=== PATIENT | male | born 1945 | race American Indian/Alaskan Native ===

== ENCOUNTER 2019-03-31 12:30 | Emergency (ER) | payer OTHER ==
[2019-03-31 12:06] VITALS: BP 105/79; PULSE 78
[2019-03-31] MEDS ORDERED: Sodium Chloride 0.9% 1,000 ML IV ONE (13:18)
--- NOTE | 2019-03-31 13:21 | EDM.PDOC ---
<CindyagnesRuddy francis - Last Filed: 03/31/19 13:16> ED HPI GENERAL MEDICAL PROBLEM - General Chief Complaint: Lower Extremity Injury/Pain Stated Complaint: RT LOWER LEG CELLULITIS Time Seen by Provider: 03/31/19 13:16 Source of Information: Reports: Patient, RN, RN Notes Reviewed History Limitations: Reports: Other (patient is a poor historian, hard of hearing) - History of Present Illness INITIAL COMMENTS - FREE TEXT/NARRATIVE: Patient presents to ER from [place] with EMS. States RLE pain/cellulitis 8/ 10 pain. Fluid filled blisters to RIGHT lateral aspect of RIGHT foot and ankle. Ankle and foot red with edema extending to RIGHT medial lower leg. The pain radiates up his right leg to the thigh. Onset: Gradual Onset Date: 03/28/19 Duration: Constant Location: Reports: Lower Extremity, Right Quality: Reports: Ache, Burning Severity: Moderate Improves with: Reports: None Worsens with: Reports: None Associated Symptoms: Reports: No Other Symptoms Left Lower Foot Pain Score (Numeric/FACES): 8 - Related Data Allergies Allergy/AdvReac Type Severity Reaction Status Date / Time No Known Allergies Allergy Verified 03/31/19 12:07 Home Meds: Home Meds Aspirin [Ecotrin] 81 mg PO DAILY 01/12/13 [History] Calcium Acetate [PhosLo] 667 mg PO BID 01/12/13 [History] Gemfibrozil 600 mg PO DAILY 01/12/13 [History] Hydrocodone/Acetaminophen [Hydrocodon-Acetaminophen 5-300] 1 tab PO Q12HR PRN [History] Insulin Aspart [Novolog Flexpen] 3 units SUBCUT TID 01/12/13 [History] Insulin Detemir [Levemir Flexpen] 18 units SUBCUT BEDTIME 01/12/13 [History] Metoprolol Succinate [Toprol XL] 25 mg PO DAILY 01/12/13 [History] Simvastatin [Zocor] 10 mg PO BEDTIME 01/12/13 [History] Vitamin B Complex DAILY 01/12/13 [History] Acetaminophen [Tylenol] 650 mg PO Q4H PRN 02/18/13 [History] Darbepoetin Jeremy [Aranesp] 100 mcg .XX 02/18/13 [History] Pantoprazole [Protonix] 40 mg PO DAILY 02/18/13 [History] Warfarin [Coumadin] 3 mg PO DAILY 02/18/13 [History] paricalcitoL [Zemplar] 2 mcg IV 02/18/13 [History] Past Medical History HEENT History: Reports: Impaired Vision Cardiovascular History: Reports: None Respiratory History: Reports: None Gastrointestinal History: Reports: Cholelithiasis Genitourinary History: Reports: None Musculoskeletal History: Reports: None Psychiatric History: Reports: None Endocrine/Metabolic History: Reports: Diabetes, Type II, Other (See Below) Other Endocrine/Metabolic History: Hemodialysis Hematologic History: Reports: None Immunologic History: Reports: None Oncologic (Cancer) History: Reports: None Dermatologic History: Reports: None - Infectious Disease History Infectious Disease History: Reports: Chicken Pox - Past Surgical History Head Surgeries/Procedures: Reports: None HEENT Surgical History: Reports: None Cardiovascular Surgical History: Reports: None Respiratory Surgical History: Reports: None GI Surgical History: Reports: Cholecystectomy Male Surgical History: Reports: None Endocrine Surgical History: Reports: Other (See Below) Other Endocrine Surgeries/Procedures: RUE dialysis fistula Social & Family History - Family History Family Medical History: Noncontributory - Tobacco Use Smoking Status *Q: Former Smoker Years of Tobacco use: 5 Packs/Tins Daily: 1 Used Tobacco, but Quit: No Second Hand Smoke Exposure: No - Caffeine Use Caffeine Use: Reports: Coffee - Recreational Drug Use Recreational Drug Use: No Review of Systems - Review of Systems Review Of Systems: Comprehensive ROS is negative, except as noted in HPI. ED EXAM, GENERAL - Physical Exam Exam: See Below Exam Limited By: No Limitations General Appearance: Alert, WD/WN, Moderate Distress Head: Atraumatic, Normocephalic Neck: Normal Inspection, Supple, Non-Tender, Full Range of Motion Respiratory/Chest: No Respiratory Distress, Lungs Clear, Normal Breath Sounds, No Accessory Muscle Use, Chest Non-Tender Cardiovascular: Normal Peripheral Pulses, Regular Rate, Rhythm, No Edema, No Gallop, No JVD, No Murmur, No Rub GI/Abdominal: Normal Bowel Sounds, Soft, Non-Tender, No Organomegaly, No Distention, No Abnormal Bruit, No Mass Extremities: Pedal Edema (right ankle), Joint Swelling (right ankle), Increased Warmth, Redness Neurological: Alert, Oriented, CN II-XII Intact, Normal Cognition, Normal Gait, Normal Reflexes, No Motor/Sensory Deficits Skin Exam: Warm, Dry, Erythema, Increased Warmth, Other (moderate swelling and erythema of the right foot and ankle extending up the right lower leg) Course - Vital Signs Last Recorded V/S: Last Vital Signs Temp 36.6 C 03/31/19 12:00 Pulse 78 03/31/19 12:00 Resp 20 03/31/19 12:00 BP 105/79 03/31/19 12:00 Pulse Ox 97 03/31/19 12:00 - Orders/Labs/Meds Orders: Active Orders 24 hr Category Date Time Status EKG Documentation Completion [RC] URGENT Care 03/31/19 13:41 Ordered CULTURE BLOOD [BC] Stat Lab 03/31/19 12:30 Ordered CULTURE BLOOD [BC] Stat Lab 03/31/19 13:20 Ordered Morphine Med 03/31/19 14:30 Once 2 mg IVPUSH ONETIME ONE Vancomycin 1,500 mg Med 03/31/19 13:50 Ordered Sodium Chloride 0.9% [Normal Saline] 500 ml IV ONETIME Medication Orders Vancomycin HCl 1,500 mg/ (Sodium Chloride) 500 mls @ 333.333 mls/hr IV ONETIME ONE Stop: 03/31/19 15:19 Labs: Laboratory Tests 03/31/19 03/31/19 03/31/19 Range/Units 12:44 12:44 12:44 WBC 25.3 H* (5.0-10.0) 10^3/uL RBC 4.04 L (4.6-6.2) 10^6/uL Hgb 13.4 L D (14.0-18.0) g/dL Hct 39.9 L (40.0-54.0) % MCV 98.8 D (80-100) fL MCH 33.2 (27.0-34.0) pg MCHC 33.6 (33.0-35.0) g/dL Plt Count 168 (150-450) 10^3/uL Neut % (Auto) 93.6 H (42.2-75.2) % Lymph % (Auto) 1.3 L (20.5-50.1) % Hernando % (Auto) 5.0 (2-8) % Eos % (Auto) 0.1 L (1.0-3.0) % Baso % (Auto) 0.0 (0.0-1.0) % Add Manual Diff Yes Neutrophils % (Manual) 83 H (42-75) % Band Neutrophils % 13 % Lymphocytes % (Manual) 1 L (20-50) % Monocytes % (Manual) 3 (2-8) % PT 11.6 D (9.0-12.0) SEC INR 1.1 (0.9-1.2) D-Dimer, Quantitative 3800 H (0-400) ng/mL Sodium (135-145) mmol/L Potassium (3.6-5.0) mmol/L Chloride (101-111) mmol/L Carbon Dioxide (21.0-31.0) mmol/L Anion Gap BUN (7-18) mg/dL Creatinine (0.6-1.3) mg/dL Est Cr Clr Drug Dosing mL/min Estimated GFR (MDRD) BUN/Creatinine Ratio Glucose (74-105) mg/dL Lactic Acid 2.8 H* (0.5-2.0) mmol/L Calcium (8.4-10.2) mg/dl Total Bilirubin (0.2-1.0) mg/dL AST (10-42) IU/L ALT (10-60) IU/L Alkaline Phosphatase (42-121) IU/L Total Protein (6.7-8.2) g/dl Albumin (3.2-5.5) g/dl Globulin Albumin/Globulin Ratio 03/31/19 Range/Units 12:44 WBC (5.0-10.0) 10^3/uL RBC (4.6-6.2) 10^6/uL Hgb (14.0-18.0) g/dL Hct (40.0-54.0) % MCV (80-100) fL MCH (27.0-34.0) pg MCHC (33.0-35.0) g/dL Plt Count (150-450) 10^3/uL Neut % (Auto) (42.2-75.2) % Lymph % (Auto) (20.5-50.1) % Hernando % (Auto) (2-8) % Eos % (Auto) (1.0-3.0) % Baso % (Auto) (0.0-1.0) % Add Manual Diff Neutrophils % (Manual) (42-75) % Band Neutrophils % % Lymphocytes % (Manual) (20-50) % Monocytes % (Manual) (2-8) % PT (9.0-12.0) SEC INR (0.9-1.2) D-Dimer, Quantitative (0-400) ng/mL Sodium 124 L D (135-145) mmol/L Potassium 6.3 H (3.6-5.0) mmol/L Chloride 86 L (101-111) mmol/L Carbon Dioxide 18.0 L (21.0-31.0) mmol/L Anion Gap 26.3 BUN 82 H (7-18) mg/dL Creatinine 11.2 H D (0.6-1.3) mg/dL Est Cr Clr Drug Dosing 6.35 mL/min Estimated GFR (MDRD) 4 BUN/Creatinine Ratio 7.32 Glucose 250 H (74-105) mg/dL Lactic Acid (0.5-2.0) mmol/L Calcium 9.4 (8.4-10.2) mg/dl Total Bilirubin 1.2 H (0.2-1.0) mg/dL AST 65 H (10-42) IU/L ALT 41 (10-60) IU/L Alkaline Phosphatase 88 (42-121) IU/L Total Protein 8.2 (6.7-8.2) g/dl Albumin 3.5 (3.2-5.5) g/dl Globulin 4.7 Albumin/Globulin Ratio 0.74 Meds: Medications Generic Name Dose Route Start Last Admin Trade Name Freq PRN Reason Stop Dose Admin Vancomycin HCl 1,500 mg/ 500 mls @ 333.333 mls/hr 03/31/19 13:50 Sodium Chloride IV 03/31/19 15:19 ONETIME ONE Discontinued Medications Generic Name Dose Route Start Last Admin Trade Name Freq PRN Reason Stop Dose Admin Sodium Chloride 1,000 mls @ 999 mls/hr 03/31/19 13:18 03/31/19 13:21 Normal Saline IV 03/31/19 14:18 999 mls/hr .BOLUS ONE Administration Piperacillin Sod/Tazobactam 100 mls @ 200 mls/hr 03/31/19 13:51 03/31/19 14: 20 Sod 3.375 gm/ Sodium Chloride IV 03/31/19 14:20 200 mls/hr ONETIME ONE Administration Departure - Departure Disposition: DC/[facility]fer to [facility] 02 Clinical Impression: CKD (chronic kidney disease) requiring chronic dialysis Sepsis Qualifiers: Sepsis type: sepsis due to unspecified organism Sepsis acute organ dysfunction status: unspecified Qualified Code(s): A41.9 - Sepsis, unspecified organism - Discharge Information Forms: ED Department Discharge, Interfacility Transfer EMTALA Care Plan Goals: Discussed the patient's history, examination, lab and treatments with Dr. Russell. Dr. Russell accepted the patient for continued evaluation and care as an inpatient at [facility]. The patient will be transported by [facility]. Sepsis Event Note - Evaluation Sepsis Screening Result: No Definite Risk - Focused Exam Vital Signs: Vital Signs Temp Pulse Resp BP Pulse Ox 03/31/19 12:00 36.6 C 78 20 105/79 97 Date Exam was Performed: 03/31/19 Time Exam was Performed: 13:16 - My Orders Last 24 Hours: My Active Orders 03/31/19 12:30 CULTURE BLOOD [BC] Stat 03/31/19 13:20 CULTURE BLOOD [BC] Stat 03/31/19 13:41 EKG Documentation Completion [RC] URGENT 03/31/19 13:50 Vancomycin 1,500 mg Sodium Chloride 0.9% [Normal Saline] 500 ml IV ONETIME 03/31/19 14:30 Morphine 2 mg IVPUSH ONETIME ONE - Assessment/Plan Last 24 Hours: My Active Orders 03/31/19 12:30 CULTURE BLOOD [BC] Stat 03/31/19 13:20 CULTURE BLOOD [BC] Stat 03/31/19 13:41 EKG Documentation Completion [RC] URGENT 03/31/19 13:50 Vancomycin 1,500 mg Sodium Chloride 0.9% [Normal Saline] 500 ml IV ONETIME 03/31/19 14:30 Morphine 2 mg IVPUSH ONETIME ONE <Leonel Waggoner M - Last Filed: 03/31/19 14:38> Departure - Departure Time of Disposition: 14:31 Condition: Serious Sepsis Event Note - Focused Exam Date Exam was Performed: 03/31/19 Time Exam was Performed: 14:31
[2019-03-31 13:26] LABS: ANION GAP 26.3
[2019-03-31] MEDS ORDERED: Piperacillin/Tazobactam 3.375 GM in Sodium Chloride 0.9% 100 ML IV ONE (13:51)
[2019-03-31] MEDS ORDERED: Morphine 2 MG/ML Syringe IVPUSH ONE (14:30)
== END 2019-03-31 15:15 ==
LOC: DL.ED 12:30
DX: A41.9 Sepsis, unspecified organism (principal); E11.22 Type 2 diabetes mellitus with diabetic chronic kidney disease; N18.6 End stage renal disease; Z99.2 Dependence on renal dialysis; Z79.4 Long term (current) use of insulin; Z79.82 Long term (current) use of aspirin; Z79.899 Other long term (current) drug therapy
CPT/HCPCS: 36415; 80053; 83605; 85025; 85379; 85610; 87040; 93005; 96361; 96365; 96375; 99285; J2270; J2543; J7030; J7050; 87077